=== PATIENT | male | born 1965 | race Caucasian/White ===

== ENCOUNTER 2019-04-19 18:52 | Emergency (ER) | payer BC, OTHER ==
[~2019-04-19] VITALS: Ht 190.5 cm; Wt 121.4 kg
[~2019-04-19 18:52] MED LIST: ACYC200O5 PO; ATOV750L PO; EFAV1TAB4 PO; POSA200O2 PO
[2019-04-19 18:56] VITALS: BP 132/84; PULSE 95; RESP 18; Ht 190.5 cm; Wt 121.4 kg
[2019-04-19] MEDS ORDERED: KETOROLAC 30 MG INJ IM STA (20:48)
--- NOTE | 2019-04-19 20:53 | ERD ---
ER Documentation Chief Complaint Chief Complaint left mid back pain, glf a week ago,reinjured yesterday. also c/o diarrhea HPI Patient is a 53 years old male with past medical history of non-Hodgkin's lymphoma (currently in remission) presenting for lightheadedness, and watery diarrhea since yesterday. Patient reports diarrhea every 30 minutes except for the last 3 hours without any bowel movement. He admits to eating hummus yesterday night, which he purchased relatively recently. Patient denies fever, chills, night sweats, dizziness. Patient is also reporting of low back pain since 2 weeks ago status [place]. Patient denies any head trauma and rates his pain 9 out of 10 that is worse with movement and denies taking any OTC medication. Patient reports difficulty ambulation. Patient denies any unintentional weight loss. ROS All systems reviewed and are negative except as per history of present illness. Medications Home Meds Active Scripts Loperamide Hcl* (Imodium*) 2 Mg Capsule, 2 MG PO .AFTER EA LOOSE BM PRN for DIARRHEA, #10 TAB Prov:IRINEO BARAJAS PA-C 04/19/19 Meloxicam* (Meloxicam*) 7.5 Mg Tablet, 7.5 MG PO DAILY, #30 TAB Prov:IRINEO BARAJAS PA-C 04/19/19 Reported Medications Acyclovir (Acyclovir) 200 Mg/5 Ml Oral.susp, 400 MG PO BID 10/17/13 Posaconazole (Noxafil) 200 Mg/5 Ml Oral.susp, 200 MG PO BID 10/17/13 Viffzgfjz-Ghfgnfhdsydwb-Swvhygrmv (Atripla) 1 Tab Tablet, 1 TAB PO DAILY 10/17/13 Atovaquone* (Mepron*) 750 Mg/5 Ml Oral.susp, 750 MG PO BID 10/17/13 Allergies Allergies: Coded Allergies: Penicillins (Verified Allergy, Mild, unknown reaction, 11/13/12) Uncoded Allergies: PENICILLIN (Allergy, 09/04/12) PMhx/Soc Non-Hodgkin's lymphoma currently in remission since 2012 History of Surgery: Yes (sx for lymphoma mass removal ) Anesthesia Reaction: No Hx Neurological Disorder: No Hx Respiratory Disorders: No Hx Cardiac Disorders: Yes (HTN) Hx Psychiatric Problems: No Hx Miscellaneous Medical Probl: Yes (INTRACRANIAL SINUS MASS AUGUST; non- hodgkins lymphoma) Hx Alcohol Use: No Hx Substance Use: No Hx Tobacco Use: No Smoking Status: Never smoker FmHx Family History: No diabetes, No coronary disease, No other Physical Exam Vitals Vital Signs Date Temp Pulse Resp B/P (MAP) Pulse Ox O2 O2 Flow FiO2 Time Delivery Rate 04/19/19 97.8 95 18 132/84 97 18:56 (100) Physical Exam Const: No acute distress. Patient sitting on a wheelchair unable to get up. Head: Atraumatic. Eyes: Normal Conjunctiva. Resp: Clear to auscultation bilaterally Cardio: Regular rate and rhythm, no murmurs Abd: Soft, non tender, non distended. Normal bowel sounds Skin: No petechiae or rashes Back: left lower back tenderness. Ext: No cyanosis, or edema Neur: Awake and alert Psych: Normal Mood and Affect Provider has some difficulty doing adequate physical exam as patient was wheelchair-bound and unable to move. Results 24 hrs Current Medications Medications Dose Sig/Rodrigue Start Time Status Last (Trade) Ordered Route PRN Stop Time Admin Dose Reason Admin 1 tab ONCE ONCE 04/19/19 DC 04/19/19 Acetaminophen PO 21:00 04/19/19 21:00 / 21:01 Hydrocodone Bitart ([place] (5/325)) Ketorolac 30 mg ONCE STAT 04/19/19 DC 04/19/19 Tromethamine IM 20:48 04/19/19 21:00 (Toradol) 20:51 Loperamide 4 mg ONCE ONCE 04/19/19 DC 04/19/19 HCl PO 21:00 04/19/19 21:00 (Imodium Cap) 21:01 Procedures/MDM Patient was seen and evaluated for lightheadedness, diarrhea and low back pain post falling injury. Chest x-ray was ordered to rule out urinary causes of lightheadedness due to history of non-Hodgkin's lymphoma. Patient's diarrhea is most likely due to consumption of contaminated food due to improvement of symptoms and does not require no further work-up. Lumbar X-ray revealed Moderate spondylosis/degenerative enthesopathy at L2-3, L3-4 and L5-S1 and Moderate facet arthrosis in the mid and lower lumbar spine. Chest x-ray unremarkable. Departure Diagnosis: Primary Impression: Back pain Back pain location: low back pain Chronicity: acute Back pain laterality: unspecified Sciatica presence: without sciatica Qualified Codes: M54.5 - Low back pain Condition: Stable Patient Instructions: Back Pain (Acute Or Chronic) Referrals: [facility] IRINEO BARAJAS PA-C Apr 19, 2019 20:53
[2019-04-19] MEDS ORDERED: LOPERAMIDE 2 MG CAP PO ONE (21:00)
[2019-04-19] MEDS ORDERED: HYDROCODONE/APAP (5/325) TAB PO ONE (21:00)
[2019-04-19] MEDS ORDERED: MELO7.5T38 PO (22:44)
[2019-04-19] MEDS ORDERED: LOPE2CAP PO (22:44)
== END 2019-04-19 22:45 | disposition home or self-care (01) ==
LOC: FTE 18:52
DX: M54.5 Low back pain (principal); I10 Essential (primary) hypertension
CPT/HCPCS: 71046; 72100; 96372; 99284; J1885